=== PATIENT | female | born 1945 | race Caucasian/White ===

== ENCOUNTER 2019-03-08 13:39 | Outpatient (CLI) | payer MEDICARE, OTHER ==
--- NOTE | 2019-03-08 14:30 | MMO ---
Bilateral MAMMO Bilat Diag [facility]. CLINICAL HISTORY: Patient is 73 years old and is seen for diagnostic exam. The patient has the following family history of breast cancer: aunt. The patient has no personal history of cancer. The patient has a history of Implants in 1976 and Implants in 1984. VIEWS: The views performed were: bilateral craniocaudal; bilateral mediolateral oblique; bilateral mediolateral; bilateral mediolateral implant displaced; and bilateral Implant displaced with tomosynthesis. FILMS COMPARED: The present examination has been compared to prior imaging studies performed at [facility] on 01/03/2014, 02/07/2016, 02/10/2018 and 08/25/2018. MAMMOGRAM FINDINGS: The breasts are almost entirely fat. Left breast: There are no suspicious masses, calcifications or areas of architectural distortion. Bilateral implants are stable. Right breast: Stable 3 mm nodule seen in the medial breast, CC projection. In the left breast, there are no suspicious masses, calcifications or areas of architectural distortion. IMPRESSION: FINDING IN THE RIGHT BREAST IS PROBABLY BENIGN. FOLLOW-UP IN 6 MONTHS IS RECOMMENDED. THE RESULTS OF THIS EXAM WERE SENT TO THE PATIENT. ACR BI-RADS Category 3 - Probably benign finding - short interval follow-up suggested. [facility] will notify the patient of the need for additional imaging services. MAMMOGRAPHY NOTE: 1. A negative mammogram report should not delay a biopsy if a dominant of clinically suspicious mass is present. 2. Approximately 10% to 15% of breast cancers are not detected by mammography. 3. Adenosis and dense breasts may obscure an underlying neoplasm.
== END 2019-03-08 13:40 | disposition home or self-care (01) ==
LOC: BICMAMMO 13:39
PROVIDERS: ATTEND Family Medicine
DX: N63.10 Unspecified lump in the right breast, unspecified quadrant (principal); Z98.82 Breast implant status; Z80.3 Family history of malignant neoplasm of breast
CPT/HCPCS: 77066; G0279

== ENCOUNTER 2019-08-10 14:03 | Outpatient (CLI) | payer MEDICARE, OTHER ==
--- NOTE | 2019-08-10 15:13 | MMO ---
Right Breast MAMMO Unilat Diag [facility]DI RT+JOSIAH. CLINICAL HISTORY: Patient is 73 years old and is seen for follow-up at short-interval from prior study. The patient has the following family history of breast cancer: paternal aunt. The patient has no personal history of cancer. The patient has a history of Implants in 1976, Implants in 1984 and bilateral Explantation in 1984. VIEWS: The views performed were: right craniocaudal with tomosynthesis; right mediolateral oblique with tomosynthesis; right mediolateral with tomosynthesis; right exaggerated craniocaudal; right Implant displaced; and right Implant displaced with tomosynthesis. FILMS COMPARED: The present examination has been compared to prior imaging studies performed at [facility] on 03/08/2019, and at [facility] on 02/07/2016, 02/10/2018 and 08/25/2018. This study has been interpreted with the assistance of computer-aided detection. MAMMOGRAM FINDINGS: The breast is almost entirely fat. There is a stable mass seen in the inner region of the right breast. IMPRESSION: STABLE MASS IN THE RIGHT BREAST IS PROBABLY BENIGN. FOLLOW-UP IN 6 MONTHS IS RECOMMENDED. THE RESULTS OF THIS EXAM WERE SENT TO THE PATIENT. ACR BI-RADS Category 3 - Probably benign finding - short interval follow-up suggested. [facility] will notify the patient of the need for additional imaging services. MAMMOGRAPHY NOTE: 1. A negative mammogram report should not delay a biopsy if a dominant of clinically suspicious mass is present. 2. Approximately 10% to 15% of breast cancers are not detected by mammography. 3. Adenosis and dense breasts may obscure an underlying neoplasm. Reported by: BETY ANDREA MD Electonically Signed: [id number]
== END 2019-08-10 14:04 | disposition home or self-care (01) ==
LOC: BICMAMMO 14:03
PROVIDERS: ATTEND Family Medicine
DX: N63.10 Unspecified lump in the right breast, unspecified quadrant (principal)
CPT/HCPCS: 77065; G0279

== ENCOUNTER 2021-03-05 13:15 | Outpatient (CLI) | payer MEDICARE, OTHER | END 2021-03-05 13:16 | disposition home or self-care (01) | LOC: BICMAMMO 13:15 | PROVIDERS: ATTEND Family Medicine | DX: N63.10 Unspecified lump in the right breast, unspecified quadrant (principal); Z98.82 Breast implant status | CPT/HCPCS: 76642; 77066; G0279 ==

== ENCOUNTER 2021-11-27 13:11 | Outpatient (CLI) | payer OTHER, MEDICARE | END 2021-11-27 13:12 | disposition home or self-care (01) | LOC: BICMRI 13:11 | PROVIDERS: ATTEND Family Medicine | DX: S20.02XA Contusion of left breast, initial encounter (principal); T85.49XA Other mechanical complication of breast prosthesis and implant, initial encounter; W01.198A Fall on same level from slipping, tripping and stumbling with subsequent striking against other object, initial encounter | CPT/HCPCS: 77047 ==

== ENCOUNTER 2023-07-01 12:49 | Outpatient (CLI) | payer MEDICARE, OTHER | END 2023-07-01 12:50 | disposition home or self-care (01) | LOC: BICMAMMO 12:49 | PROVIDERS: ATTEND Family Medicine | DX: Z12.31 Encounter for screening mammogram for malignant neoplasm of breast (principal); Z80.3 Family history of malignant neoplasm of breast; Z98.82 Breast implant status; Q83.9 Congenital malformation of breast, unspecified | CPT/HCPCS: 77063; 77067 ==

== ENCOUNTER 2024-01-07 14:45 | Outpatient (CLI) | payer MEDICARE, OTHER | END 2024-01-07 14:46 | disposition home or self-care (01) | LOC: BICMAMMO 14:45 | PROVIDERS: ATTEND Family Medicine | DX: N64.4 Mastodynia (principal); Z80.3 Family history of malignant neoplasm of breast | CPT/HCPCS: 77066; G0279 ==